=== PATIENT | female | born 1965 | race Caucasian/White ===

== ENCOUNTER → 2016-08-24 | Outpatient (CLI) | payer BC ==
--- NOTE | 2016-08-24 21:36 | MR ---
EXAMINATION TYPE: MR lumbar spine wo con DATE OF EXAM: 08/24/2016 1:20 PM COMPARISON: 08/21/2012 HISTORY: 50-year-old female with chronic low back pain, and bilateral hip pain TECHNIQUE: Multiplanar, multisequence images of the lumbar spine were acquired. FINDINGS: Vertebral body heights are preserved. Alignment is maintained. No suspicious bone marrow replacement. Scattered small endplate Schmorl's nodes are present with some Modic type II endplate changes anterio rly at L3-L4. Variable disc desiccation and disc bulging with scattered mild disc space narrowing especially in the upper to mid lumbar spine. Hypertrophic facet arthropathy and ligamentum flavum thickening is also noted. Conus medullaris is normal. At T12-L1, there is diffuse disc bulge, new from prior exam. This impresses onto the ventral thecal s ac but does not cause significant spinal canal stenosis. There is new minimal inferior foraminal narr owing on the right. At L1-L2, continued diffuse disc bulge. This is increased in the interval with ligamentum flavum thic kening. Changes result in mild spinal canal stenosis with increased mild right neuroforaminal stenosi s. At L2-L3, there is diffuse disc bulge impressing on to the ventral thecal sac, increased from prior b ut not causing significant spinal canal stenosis. No significant neuroforaminal stenosis. At L3-L4, there is diffuse disc bulge with ligamentum flavum thickening and facet degenerative change . There is circumferential attenuation of the thecal sac with very mild spinal canal stenosis similar to prior exam. Mild bilateral inferior neural foraminal narrowing is slightly increased from prior. At L4-L5, diffuse disc bulge with ligamentum flavum thickening and facet degenerative change. Changes mildly impress on the ventral thecal sac without significant spinal canal stenosis. There is increas ed moderate left neuroforaminal stenosis and increased mild right neuroforaminal stenosis At L5-S1, there is diffuse disc bulge and facet degenerative change. No significant spinal canal or n euroforaminal stenosis. No prevertebral or paravertebral soft tissue abnormality seen. IMPRESSION: 1. Moderate multilevel degenerative disc disease with ligamentum flavum thickening and facet arthropa thy, progressed from 08/21/2012. 2. At L1-L2, there is increased, now mild spinal canal stenosis and increased mild right neural adriana inal stenosis. 3. Mild spinal canal stenosis at L3-L4 is relatively similar to prior exam. Mild inferior neuroforami nal narrowing on both sides at this level is increased from prior. 4. At L4-L5, there is increased moderate left and mild right neuroforaminal stenosis. 5. Degenerative disc disease is also progressed at T12-L1 with new minimal inferior neural foraminal narrowing on the right.
== END ==
LOC: RADMRIMAIN 12:41
PROVIDERS: ATTEND Family Medicine
DX: M48.06 Spinal stenosis, lumbar region (principal); M99.73 Connective tissue and disc stenosis of intervertebral foramina of lumbar region; M51.36 Other intervertebral disc degeneration, lumbar region
CPT/HCPCS: 72148